=== PATIENT | male | born 1960 | race Caucasian/White ===

== ENCOUNTER 2022-04-20 09:23 | Day surgery (SDC) | payer MEDICARE ==
[2022-04-20 09:49] VITALS: BP 151/70; TEMP 98
[2022-04-20] MEDS ORDERED: Aspirin 325 MG TAB ONE (09:50)
[2022-04-20] MEDS ORDERED: Ascorbic Acid 500 mg Chewable Tablet ONE (09:50)
[2022-04-20] MEDS ORDERED: Lidocaine 1% 20 ML MDV ONE (10:11)
[2022-04-20] MEDS ORDERED: Adenosine 6 MG/2 ML VIAL ONE (10:12)
[2022-04-20] MEDS ORDERED: Nitroglycerin 50 MG/250 ML BOT 0 ML ONE (10:12)
[2022-04-20] MEDS ORDERED: Heparin 10,000 UNITS/ 10 ML VIAL ONE (10:12)
[2022-04-20] MEDS ORDERED: Sodium Chloride 0.9% 1,000 ML ONE (10:13)
[2022-04-20] MEDS ORDERED: Fentanyl 100 MCG/2 ML VIAL ONE (11:06)
[2022-04-20] MEDS ORDERED: Midazolam HCl 2 mg/2 ml Vial ONE (11:06)
[2022-04-20] MEDS ORDERED: Iopamidol 300 61% 100 ML VIAL FS ONE (15:43)
== END 2022-04-20 15:15 | disposition home or self-care (01) ==
LOC: CSHSDC 09:23
PROVIDERS: ATTEND Specialist
DX: I25.118 Atherosclerotic heart disease of native coronary artery with other forms of angina pectoris (principal); T82.857A Stenosis of other cardiac prosthetic devices, implants and grafts, initial encounter; I11.0 Hypertensive heart disease with heart failure; I50.42 Chronic combined systolic (congestive) and diastolic (congestive) heart failure; I25.2 Old myocardial infarction; E78.2 Mixed hyperlipidemia; I48.0 Paroxysmal atrial fibrillation; E11.51 Type 2 diabetes mellitus with diabetic peripheral angiopathy without gangrene; E11.42 Type 2 diabetes mellitus with diabetic polyneuropathy; Z88.0 Allergy status to penicillin; Z88.8 Allergy status to other drugs, medicaments and biological substances; Z87.891 Personal history of nicotine dependence; Z95.1 Presence of aortocoronary bypass graft; Z98.890 Other specified postprocedural states; Y83.2 Surgical operation with anastomosis, bypass or graft as the cause of abnormal reaction of the patient, or of later complication, without mention of misadventure at the time of the procedure
CPT/HCPCS: 93459; C1760; C1769; 99152; J0153; J1644; J2250; J3010; J7050; Q9967

== ENCOUNTER 2024-10-26 09:15 | Emergency (ER) | payer MEDICARE ==
[2024-10-26 10:13] LABS: #Basophils Less than 0.03 10x3/uL (0.0-0.2); #Eosinophils 0.03 10x3/uL (0.0-0.5); #Monocytes 1.23 10x3/uL (0.0-1.1); #Neutrophils 12.23 10x3/uL (1.5-8.4); %Basophils 0.1 % (0.0-2.0); %Eosinophils 0.2 % (0.0-6.0); %Lymphocytes 14.4 % (18.0-47.0); %Monocytes 7.8 % (0.0-10.0); %Neutrophils 77.2 % (40.0-75.0); Hemoglobin 13.3 g/dL (13.5-17.5); Mean Corpuscular HGB CONC 34.1 g/dL (32.0-36.0); Mean Corpuscular Hemoglobin 30.2 pg (27.0-33.0); Mean Corpuscular Volume 88.4 fL (81.2-95.1); Mean Platelet Volume 9.7 fL (7.4-10.4); Platelet Count 322 10x3/uL (150-450); RBC Distribution Width 12.2 % (11.5-14.5); Red Blood Cell (RBC) Count 4.41 10x6/uL (4.32-5.72); White Blood Cell (WBC) Count 15.84 10x3/uL (3.5-10.5)
[2024-10-26 10:27] LABS: ALT (SGPT) 11 U/L (Less than 45); AST (SGOT) 12 U/L (11-34); Albumin 3.1 g/dL (3.1-4.5); Alkaline Phosphatase 66 U/L (40-110); Anion Gap 17 mmol/L (10-20); BUN (Urea Nitrogen) 11 mg/dL (8.4-25.7); Calc. Creatinine Clearance 0 mL/min (70-130); Calcium 8.4 mg/dL (7.8-10.44); Carbon Dioxide 23 mmol/L (23-31); Chloride 100 mmol/L (98-107); Estimated GFR 98; Globulin 3.9 g/dL (2.4-3.5); Glucose 202 mg/dL (80-115); Potassium 4.2 mmol/L (3.5-5.1); Sodium 136 mmol/L (136-145)
[2024-10-26 10:33] LABS: Troponin I 0.016 ng/mL (< 0.028)
[2024-10-26 13:08] LABS: Troponin I 0.012 ng/mL (< 0.028)
== END 2024-10-26 14:43 | disposition home or self-care (01) ==
LOC: CSHERS 09:15
DX: J18.9 Pneumonia, unspecified organism (principal); E11.9 Type 2 diabetes mellitus without complications; I25.2 Old myocardial infarction; I11.0 Hypertensive heart disease with heart failure; I50.9 Heart failure, unspecified; I48.91 Unspecified atrial fibrillation; Z95.5 Presence of coronary angioplasty implant and graft; Z87.891 Personal history of nicotine dependence; Z79.899 Other long term (current) drug therapy
CPT/HCPCS: 36415; 71045; 80053; 83605; 83880; 84484; 85025; 93005